=== PATIENT | male | born 1955 ===

== ENCOUNTER 2022-05-18 06:13 | Day surgery (SDC) | payer MEDICARE, MEDICAID ==
[2022-05-18] MEDS: Lactated Ringers 1,000 ML IV SCH ×2 (06:00→09:00)
[~2022-05-18 06:13] MED LIST: Acetaminophen 325 MG Tab PO SCH; Lidocaine 1%/Sod Bicarbonate in NS 8.4% 1 ML Syringe IDERM PRN; Morphine 8 MG, EPINEPHrine 0.3 MG, Cefuroxime 750 MG, Ketorolac 30 MG, Sodium Chloride ... PRN; Sodium Chloride 0.9% 10 ML Syringe FLUSH PRN; Sodium Chloride 0.9% 10 ML Syringe FLUSH SCH; Tranexamic Acid 1,000 MG/10 ML Vial ONE; Vancomycin 1 GM SDV ONE; oxyCODONE ER 10 MG TAB.ER PO SCH
[2022-05-18] MEDS ORDERED: Midazolam 1 MG/ML 2 ML SDV ONE (06:24)
[2022-05-18] MEDS ORDERED: fentaNYL 100 MCG/2 ML SDV ONE (06:25)
[2022-05-18] MEDS ORDERED: Propofol 200 MG/20 ML SDV ONE ×3 (06:25→08:07)
[2022-05-18] MEDS ORDERED: Lidocaine 1% 2 ML ONE (06:26)
[2022-05-18] MEDS ORDERED: Pregabalin 25 MG Cap PO ONE (06:35)
[2022-05-18] MEDS ORDERED: Ondansetron 4 MG/2 ML SDV IVPUSH PRN (06:49)
[2022-05-18] MEDS ORDERED: HYDROmorphone 0.5 MG/0.5 ML Syringe IVPUSH PRN (06:49)
[2022-05-18] MEDS ORDERED: fentaNYL 100 MCG/2 ML SDV IVPUSH PRN (06:49)
[2022-05-18] MEDS ORDERED: ceFAZolin 2 GM Vial ONE (06:54)
[2022-05-18] MEDS ORDERED: ePHEDrine 50 MG/ML SDV ONE (07:30)
[2022-05-18] MEDS ORDERED: Phenylephrine 1% 10 MG/ML SDV ONE (07:30)
[2022-05-18] MEDS ORDERED: EPINEPHrine 1 MG/ML SDV ONE (08:06)
[2022-05-18] MEDS ORDERED: Ropivacaine 0.5% 5 MG/ML 30 ML SDV ONE (08:39)
[2022-05-18] MEDS ORDERED: oxyCODONE 5 MG Tab PO PRN (10:11)
[2022-05-18] MEDS ORDERED: Cyclobenzaprine 10 MG Tab PO SCH (10:41)
[2022-05-18] MEDS ORDERED: Pregabalin 25 MG Cap PO SCH (11:00)
== END 2022-05-18 12:20 | disposition home or self-care (01) ==
LOC: JD.SDS 06:13
PROVIDERS: ATTEND Orthopaedic Surgery
DX: M17.11 Unilateral primary osteoarthritis, right knee (principal); G89.29 Other chronic pain; E11.9 Type 2 diabetes mellitus without complications; I10 Essential (primary) hypertension; E78.5 Hyperlipidemia, unspecified; G47.00 Insomnia, unspecified; I25.10 Atherosclerotic heart disease of native coronary artery without angina pectoris; F41.9 Anxiety disorder, unspecified; F32.A Depression, unspecified; M10.9 Gout, unspecified; Z79.84 Long term (current) use of oral hypoglycemic drugs; Z79.899 Other long term (current) drug therapy
CPT/HCPCS: 0055T; 27447; 64447; 73560; 97110; 97116; 97161; A9270; C1713; C1776; J0171; J0690; J0697; J1885; J2250; J2270; J2370; J2704; J2795; J3010; J3370; J7120; 01402; J3490